=== PATIENT | male | born 1975 | race Caucasian/White ===

== ENCOUNTER 2017-11-01 19:58 | Emergency (ER) | payer MEDICAID, OTHER ==
[2017-11-01 20:06] VITALS: BP 126/83
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
== END 2017-11-01 20:50 | disposition home or self-care (01) ==
DX: M25.521 Pain in right elbow (principal); G89.29 Other chronic pain; F17.200 Nicotine dependence, unspecified, uncomplicated
CPT/HCPCS: L3807

== ENCOUNTER 2018-06-22 03:43 | Emergency (ER) | payer MEDICAID ==
[2018-06-22 03:51] VITALS: BP 122/87
== END 2018-06-22 04:09 | disposition left against medical advice (07) ==
DX: Z53.21 Procedure and treatment not carried out due to patient leaving prior to being seen by health care provider (principal)

== ENCOUNTER 2018-09-20 21:19 | Emergency (ER) | payer MEDICAID ==
[2018-09-20 21:23] VITALS: BP 137/80
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
[2018-09-20] MEDS ORDERED: IBUPROFEN 800 MG TAB PO ONE (21:40)
== END 2018-09-20 21:52 ==
DX: S50.01XA Contusion of right elbow, initial encounter (principal); M54.42 Lumbago with sciatica, left side; V13.4XXA Pedal cycle driver injured in collision with car, pick-up truck or van in traffic accident, initial encounter

== ENCOUNTER 2018-11-28 18:07 | Emergency (ER) | payer MEDICAID | END 2018-11-28 19:21 | disposition home or self-care (01) ==